=== PATIENT | male | born 1960 | race Two or more races ===

== ENCOUNTER 2016-10-21 15:33 | Emergency (ER) | payer BC, OTHER ==
[~2016-10-21] VITALS: Ht 170.2 cm; Wt 100.8 kg
[2016-10-21] MEDS ORDERED: ESCI10TA2 PO (15:52)
[2016-10-21] MEDS ORDERED: DICL75TA PO (15:52)
[2016-10-21] MEDS ORDERED: FENO150C PO (15:52)
[2016-10-21] MEDS ORDERED: CETI10TA PO (15:52)
[2016-10-21] MEDS ORDERED: ATEN50TA2 PO (15:52)
[2016-10-21] MEDS ORDERED: OMEP40CA2 PO (15:52)
[2016-10-21] MEDS ORDERED: OXYC1TAB23 PO (15:52)
[2016-10-21] MEDS ORDERED: PRAV40TA2 PO (15:52)
[2016-10-21] MEDS ORDERED: KETOROLAC 30 MG/ML VIAL (J1885) IV ONE (17:00)
[2016-10-21] MEDS ORDERED: NS 1,000 ML IV ONE (17:00)
[2016-10-21] MEDS ORDERED: PERCOCET 5MG/325MG TAB PO ONE (17:00)
--- NOTE | 2016-10-21 17:59 | REP ---
CERVICAL SPINE COMPLETE: 10/21/2016. Clinical history: Neck pain, no trauma. No comparison study. Findings: Eight views are provided. Flexion is adequate extension, slightly decreased but overall adequate range of motion is present. There is some soft tissue calcification just deep to the fascia of the posterior strap muscles, well away from spinous process likely related in any event, this is a remote smooth calcification without acute findings. No compression deformity, disc space vertebral body heights are intact. C1-2 relationship is normal on all views. The cervical thoracic junction aligns normally on the swimmer's view of the dens and lateral masses are intact on open mouth view. No torticollis on the AP view which appears unremarkable. Posterior elements intact on that view. The foramina are ample on the right and adequate to marginally adequate on the left due to some facet spurs at C2-3 and C3-4. Impression 1. Some slight loss of range of motion with extension which may indicate spasm but there is no instability and adequate flexion is evident. No prevertebral swelling or compression fracture. 2. Some minor foraminal encroachment on the left and C2-3 and C3-4 due to facet spurs. No other finding. Signed by Jeffrey Colorado MD 10/22/2016 05:10 P
[2016-10-21 18:26] VITALS: BP 110/65
[2016-10-21] MEDS ORDERED: ROBA500T PO (18:29)
[2016-10-21] MEDS ORDERED: NAPR500T PO (18:29)
[2016-10-21] MEDS ORDERED: NORCOTAB PO (18:29)
== END 2016-10-21 18:47 | disposition home or self-care (01) ==
LOC: M ED 15:33
DX: S13.9XXA Sprain of joints and ligaments of unspecified parts of neck, initial encounter (principal); I25.10 Atherosclerotic heart disease of native coronary artery without angina pectoris; E78.5 Hyperlipidemia, unspecified; K21.9 Gastro-esophageal reflux disease without esophagitis; G89.29 Other chronic pain; G54.9 Nerve root and plexus disorder, unspecified; F33.8 Other recurrent depressive disorders; Y92.9 Unspecified place or not applicable; Y99.9 Unspecified external cause status; Y93.9 Activity, unspecified; Z88.8 Allergy status to other drugs, medicaments and biological substances; Z79.899 Other long term (current) drug therapy
CPT/HCPCS: 72052; 96361; 96374; 96375; 99283; J1885; J3360

== ENCOUNTER 2016-10-28 12:53 | Emergency (ER) | payer BC ==
[~2016-10-28] VITALS: Ht 170.2 cm; Wt 96.3 kg
[~2016-10-28 12:53] MED LIST: ATEN50TA2 PO; CETI10TA PO; DICL75TA PO; ESCI10TA2 PO; FENO150C PO; NAPR500T PO; NORCOTAB PO; OMEP40CA2 PO; OXYC1TAB23 PO; PRAV40TA2 PO; ROBA500T PO
[2016-10-28] MEDS ORDERED: PERCOCET 5MG/325MG TAB PO ONE (14:45)
--- NOTE | 2016-10-28 15:37 | REP ---
CT CERVICAL SPINE WITHOUT CONTRAST: HISTORY: Trauma. There is no acute fracture or subluxation. Disc bulges are present at the C3-4 through C5-6 levels. There is minimal narrowing of the spinal canal. Uncinate process and/or facet hypertrophy are present at the C2-3 through C5-6 levels. These findings produce minimal narrowing of the neural foramina. The C5-6 intervertebral disc is decreased in height consistent with disc degeneration. There is loss of the normal lordotic curve. IMPRESSION: 1. There is no acute fracture or subluxation. 2. There is cervical spondylosis at the C2-3 through C5-6 levels. Signed by Joseph Hawthorne MD 10/28/2016 03:39 P
[2016-10-28] MEDS ORDERED: NORC1TAB4 PO (15:49)
[2016-10-28] MEDS ORDERED: MEDR4PAK PO (15:49)
[2016-10-28 15:59] VITALS: BP 132/87
== END 2016-10-28 16:01 | disposition home or self-care (01) ==
LOC: M ED 12:53
DX: M50.10 Cervical disc disorder with radiculopathy, unspecified cervical region (principal); Z72.0 Tobacco use

== ENCOUNTER → 2016-11-15 | Outpatient (REF) | payer BC ==
[~2016-11-15] MED LIST changes: +MEDR4PAK PO; +NORC1TAB4 PO
[2016-11-15 11:55] LABS: BASO # 0.1 K/mm3 (0.0-0.2); BASO % 1.1 % (0.0-1.0); EOS # 0.3 K/mm3 (0.0-0.50); EOS % 5.5 % (0.0-3.0); LARGE UNSTAINED CELL # 0.1 K/mm3 (0.0-0.4); LARGE UNSTAINED CELL % 1.8 % (0.0-4.0); LYMPH # 1.9 K/mm3 (1.5-4.5); LYMPH % 35.1 % (24.0-44.0); MEAN CORPUSCULAR HEMOGLOBIN 33.4 pg (27.0-33.0); MEAN CORPUSCULAR HGB CONC 34.7 g/dl (32.0-36.5); MEAN CORPUSCULAR VOLUME 96.1 fl (80.0-96.0); MONO # 0.3 K/mm3 (0.0-0.8); MONO % 6.7 % (0.0-5.0); NEUTROPHILS # 2.6 K/mm3 (1.8-7.7); NEUTROPHILS % 49.8 % (36.0-66.0); PLATELET COUNT, AUTOMATED 213 k/mm3 (150-450); RED CELL DISTRIBUTION WIDTH 12.9 % (11.5-14.5); WHITE BLOOD COUNT 5.2 K/mm3 (4.0-10.0)
[2016-11-15 12:30] LABS: ALBUMIN 3.8 GM/DL (3.2-5.2); ALBUMIN/GLOBULIN RATIO 1.09 (1.00-1.93); ALKALINE PHOSPHATASE 56 U/L (45-117); ALT/SGPT 32 U/L (12-78); ANION GAP 8 MEQ/L (8-16); AST/SGOT 30 U/L (15-37); BILIRUBIN,TOTAL 0.5 MG/DL (0.2-1.0); BLOOD UREA NITROGEN 13 MG/DL (7-18); CALCIUM LEVEL 9.3 MG/DL (8.5-10.1); CARBON DIOXIDE LEVEL 26 MEQ/L (21-32); CHLORIDE LEVEL 108 MEQ/L (98-107); CHOLESTEROL LEVEL 158 MG/DL (<200); CREATININE FOR GFR 1.12 MG/DL (0.70-1.30); GLOMERULAR FILTRATION RATE > 60.0 (>56); GLUCOSE, FASTING 121 MG/DL (70-105); SODIUM LEVEL 142 MEQ/L (136-145); TOTAL PROTEIN 7.3 GM/DL (6.4-8.2); TRIGLYCERIDES LEVEL 163 MG/DL (<150)
== END ==
LOC: M SFHCPLAZ 08:56
PROVIDERS: ATTEND Physician Assistant Medical
DX: I10 Essential (primary) hypertension (principal); E78.00 Pure hypercholesterolemia, unspecified; E66.09 Other obesity due to excess calories; R73.01 Impaired fasting glucose

== ENCOUNTER → 2017-01-03 | Outpatient (REF) | payer BC ==
[2017-01-03 18:12] LABS: FREE T4 1.02 NG/DL (0.76-1.46)
== END ==
LOC: M SFHCPLAZ 15:09
PROVIDERS: ATTEND Physician Assistant Medical
DX: E03.9 Hypothyroidism, unspecified (principal)

== ENCOUNTER → 2017-01-03 | Outpatient (CLI) | payer BC ==
--- NOTE | 2017-01-03 16:17 | REP ---
Cervical spine seven views: Panel vertebral body heights, interspacing alignment are normal C1 through T1. The prevertebral soft tissues are normal. The facets are normally aligned. There are a few degenerative calcifications in the ligamentum nuchae. There is no listhesis on flexion or extension. There is only one oblique view demonstrating there is no bony foraminal encroachment on the right. There is no n oblique view demonstrating the left foramen. The odontoid view is unremarkable. Essentially negative cervical spine plain film study except that the oblique view demonstrating the left foramen is excluded from the study. Depending on symptomatology consider follow-up MRI. Signed by Fausto Vidales MD 01/03/2017 04:09 P
== END ==
LOC: M SMT 15:45
PROVIDERS: ATTEND Physician Assistant Medical
DX: M50.90 Cervical disc disorder, unspecified, unspecified cervical region (principal)